=== PATIENT | female | born 1980 | race Two or more races ===

== ENCOUNTER 2020-05-15 10:36 | Outpatient (REF) | payer OTHER, SELFPAY ==
[2020-05-18 14:13] LABS: HSV 1 DNA Result Negative (Negative); HSV 2 DNA Result Negative (Negative); Varicella Zoster DNA Result Positive (Negative)
== END 2020-05-15 10:56 ==
LOC: NCHCN 10:36
PROVIDERS: Visit Provider Nurse Practitioner Family
DX: L03.114 Cellulitis of left upper limb (principal)
CPT/HCPCS: 87529; 87798

== ENCOUNTER 2021-03-01 14:41 | Outpatient (REF) | payer OTHER, SELFPAY ==
--- NOTE | 2021-03-01 13:30 | PAPFT_PTH ---
PATIENT: Pamela Galicia LOC: [facility] U#:[id number] AGE/SX: 40/F ROOM: RE03/01/[address]: LISANDRA Luz : 1980 BED: DIS: 03/01/2021 SPEC #: [id number] RECD: 03/01/21 17:31 STATUS: LIZZETTE REQ #: [id number] DANNA: 03/01/21 13:[address]: Joyce Izquierdo DEPT: [facility] Cytology RECD BY: Tiana Peres ENTERED: 03/01/21 17:31 SP TYPE: PAPFT OT DR: Unknown,Unknown Tissues: 1 - CX/ENDOCX FOR PAP SMEARS Procedures: PAP THIN PREP/[facility] Screening HPV DNA PROBE Comments: [id number]
== END 2021-03-01 14:42 | disposition home or self-care (01) ==
LOC: LBN 14:41
PROVIDERS: Visit Provider Nurse Practitioner Family
DX: Z12.4 Encounter for screening for malignant neoplasm of cervix (principal); Z11.51 Encounter for screening for human papillomavirus (HPV)
CPT/HCPCS: 88142; 87624

== ENCOUNTER → 2022-01-14 01:09 | Outpatient (CLI) | payer OTHER, SELFPAY ==
--- NOTE | 2022-01-14 | DI.MAMMO_ITS ---
Exam(s) MAMMO SCREENING EXAM: MAMMO SCREENING CLINICAL HISTORY: SCREENING, Z12.39 TECHNIQUE: Mammograms were interpreted according to the usual protocol including computer analysis w [employer] CAD system, tomosynthesis and C-view imaging. COMPARISON: 2018 FINDINGS: The breasts are composed of scattered fibroglandular densities, Breast Density category B. No suspicious masses or suspicious microcalcifications are seen. No skin thickening or abnormal axillary lymph nodes are seen. There has been no significant change from prior exams. IMPRESSION: BI-RADS Category 1, Negative mammogram Yearly screening mammography is recommended. Breast Density - Category B, scattered fibroglandular densities. A negative radiographic report should not delay biopsy if a dominant or clinically suspicious mass is present. Up to ten percent of cancers are not identified on mammography. A negative report may reinforce clinical impression. Adenosis and dense breasts may obscure an underlying neoplasm. False positive reports average 6 to 10%. Patient will receive a letter notifying them of these results.
--- OUTSIDE RECORDS SUMMARY | 2022-01-14 01:11 | XMS_ITS ---
:1980 Author Care Team Providers Name Role Phone LACI DOWELL Primary Care Provider [phone] Allergies Code Code System Name Reaction Severity Status Onset NKDA ? Medications Name Status Start Date Stop Date ? ? amoxicillin 500 mg capsule Completed ? 01/12 amoxicillin 500 mg tablet Completed ? 2019 chlorthalidone 25 mg tablet Completed ? 02/20 Imitrex 50 mg tablet Completed 11/11/2016 05/17/2017 1 (one) Tablet: once lisinopril 5 mg tablet Completed ? 0 Notes: Has not started Problems Name Status Onset Date Source ? Pain of Left Shoulder Joint Active 05/23/2018 ? Essential Hypertension Active 05/27/2019 ? Severe Obesity Active ? History Obstructive Sleep Apnea Syndrome Active ? History Migraine Active ? History Chronic Migraine without Aura Unknown ? Hi story Hypertensive Disorder Active ? History Adult Health Examination Active ? History Procedure by Method Unknown ? History Procedures Date Name Performed by ? ? Foot Surgery Information not avai lable Notes: cyst removal on foot as a child 05/23/2018 MAMMO, Screening, Tomosynthesis, [facility] (Internal) Bilateral [address] [place] [address] (Work Place) Results Lab Results Date Name Specimen Result Interpretation Description Value Range Status Address ? 12/14/2016 Venipuncture BLD ? Venpn* ? ? Final [facility] (Internal) : [address] 12/14/2016 BMP, Serum or S ? g/r 89 mg/dL 74-10 [facility] Plasma 6 Hospital L ab mg/dL (Internal) : [address] ? ? S ? Bun 10 mg/dL 7-17 Final [facility] untry mg/dL Hospital L ab (Internal) : [address] ? ? S ? Crea 0.60 0.52- Final [facility] try mg/dL 1.04 Hospital L ab mg/dL (Internal) : [address] ? ? S ? Ca 8.4 8.4-1 Final [facility] try mg/dL 0.2 Hospital L ab mg/dL (Internal) : [address] ? ? S ? Na 142 137-1 Final [facility] try mmol/L 45 Hospital L ab mmol/ (Internal) : [address] ? ? S ? K 4.1 3.5-5 Final [facility] try mmol/L .1 Hospital L ab mmol/ (Internal) : [address] ? ? S ? Cl 104 98-10 Final [facility] try mmol/L 7 Hospital L ab mmol/ (Internal) : [address] ? ? S ? Tco2 28.0 22.0- [facility] mmol/L 30.0 [facility] L [facility] mmol/ (Internal) : [address] 12/14/2016 Lipid Panel, S ? Chol 145 50-20 Final [facility] Serum mg/dL 0 Hospital L ab mg/dL (Internal) : [address] ? ? S ? Trig 63 mg/dL 10-15 Final [facility]try 0 Hospital L ab mg/dL (Internal) : [address] ? ? S ? Hdl 41 mg/dL 40-60 Final [facility] mg/dL Hospital L ab (Internal) : [address] ? ? S ? Ldl 91 mg/dL 0-130 Final [facility] untry mg/dL Hospital L ab (Internal) : [address] Past Encounters None recorded. Social History Tobacco Smoking Status Never Smoker Vaccine List None recorded. Plan of Care Reminders Provider Appointments None recorded. ? ? Lab None recorded. ? ? Referral None recorded. ? ? Procedures None recorded. ? ? Surgeries None recorded. ? ? Imaging None recorded. ? ? Vitals 03/20/2020 12:30PM Office 30 Height Weight BMI Blood Pressure 162.56 cm 119.02 kg 45 kg/m2 146/85 mm[Hg] 08/29/2019 08:40AM Follow Up 20 Height Weight BMI Blood Pressure 162.56 cm 122.42 kg 46.3 kg/m2 (1) 140/92 mm[H g] (2) 144/94 mm[Hg ] 05/27/2019 09:00AM CPE 40 Height Weight BMI Blood Pressure 162.56 cm 127.01 kg 48.1 kg/m2 146/92 mm[Hg] 12/17/2018 12:40PM Acute 20 Height Weight BMI Blood Pressure 162.56 cm 123.38 kg 46.7 kg/m2 (1) 158/108 mm[ Hg] (2) 152/92 mm[Hg ] 05/23/2018 10:40AM CPE 40 Height Weight BMI Blood Pressure 162.56 cm 123.38 kg 46.7 kg/m2 132/98 mm[Hg] 09/15/2017 Height Weight Blood Pressure 162.56 cm 122.5 kg 138/72 mm[Hg] 05/17/2017 Height Weight Blood Pressure 164.08 cm 124.87 kg 142/88 mm[Hg] 11/11/2016 Height Weight Blood Pressure 162.56 cm 124.78 kg 134/84 mm[Hg] 04/29/2016 Height Weight Blood Pressure 162.56 cm 120.97 kg 142/90 mm[Hg]
== END ==
PROVIDERS: Visit Provider Physician Assistant
DX: Z12.31 Encounter for screening mammogram for malignant neoplasm of breast (principal)
CPT/HCPCS: 77063; 77067

== ENCOUNTER → 2023-12-15 00:08 | Outpatient (CLI) | payer OTHER, SELFPAY ==
--- NOTE | 2023-12-15 | DI.MAMMO_ITS ---
Exam(s) MAMMO SCREENING EXAM: MAMMO SCREENING CLINICAL HISTORY: SCREENING, Z12.31 TECHNIQUE: Bilateral full field digital CC and MLO mammographic images were obtained with 3D tomosyn thesis and utilizing computer aided detection (CAD). COMPARISON: Available for comparison. FINDINGS: Masses/Architectural Distortion: None seen. Microcalcifications: No suspicious pleomorphic-type are seen. Skin Thickening/Nipple Retraction: None. IMPRESSION: 1. No significant interval change with no specific features of malignancy noted. 2. Unless there is more urgent need, screening mammography is recommended, as per [place] guidelines. BI-RADS Category 1 - Negative Breast Density - Category B - Scattered areas of fibroglandular density Breast density category C or D implies that the patient has dense breast tissue. Dense breast tissue is very common and is not abnormal but dense breast tissue can make it harder to find cancer on a ma mmogram. Also, dense breast tissue may increase their breast cancer risk. This information about the result of the mammogram report was provided to the patient to raise their awareness. Use this report when you speak with the patient about their risks for breast cancer, which includes their family hist ory. At that time, you may recommend for more screening tests (Ultrasound or MRI) as they might be us eful based on their risk. A negative radiographic report should not delay biopsy if a dominant or clinically suspicious mass is present. Up to ten percent of cancers are not identified on mammography. A negative report may reinforce clinical impression. Adenosis and dense breasts may obscure an underlying neoplasm. False positive reports average 6 to 10%. Patient will receive a letter notifying them of these results.
== END ==
PROVIDERS: Visit Provider Physician Assistant
DX: Z12.31 Encounter for screening mammogram for malignant neoplasm of breast (principal)
CPT/HCPCS: 77063; 77067

== ENCOUNTER 2025-01-17 11:08 | Day surgery (SDC) | payer OTHER, SELFPAY ==
--- NOTE | 2025-01-16 16:47 | W.PM.DSUDISC ---
Date of service: 01/17/25 Discharge Plan Disposition Patient Disposition: Home Condition: Good Discharge Details Reason For Visit: EGD and colonoscopy Attending Provider: Jac Floyd Primary Care Provider: Ori Xie Home Meds and New Rx's Prescriptions: New pantoprazole 20 mg tablet,delayed release (DR/EC) 20 mg PO DAILY Qty: 30 0RF Continued ferrous gluconate 324 mg (37.5 mg iron) tablet 324 mg PO DAILY sertraline 25 mg tablet 25 mg PO DAILY Discontinued polyethylene glycol 3350 17 gram/dose powder 238 g PO ONCE Qty: 238 0RF Rx Instructions: take per colonoscopy instructions bisacodyl [Dulcolax (bisacodyl)] 5 mg tablet,delayed release (DR/EC) 5 mg PO ONCE Qty: 4 0RF Rx Instructions: take per colonoscopy instructions Discharge Instructions Instructions: Peptic ulcers Additional Instructions: Pamela, was good seeing you today, and I hope you feel well after the procedures. Things went very smoothly. With regards to your upper endoscopy, there are some signs of inflammation in your stomach in the form of very small ulcers. None of them are actively bleeding, nor do they require any specific interventions today. However, I do suspect that this is probably the cause of your chronic anemia. There are also a few small polyps in your stomach. These are not at all dangerous. They are quite small, and very common among patients. I did do some biopsies of different areas of the stomach, and I did sample one of the polyps to be sure nothing is out of the ordinary. These biopsies will take a week or 2 to get back, but once my office has that information, we will be in touch with any other recommendations. I did go ahead and put an order in for prescription called pantoprazole today. This is also known as Protonix. This medication is in the family of proton pump inhibitors, which are strong antacids. These are the mainstay of therapy for patients with gastritis and peptic ulcer disease we will start with 1 tablet every day. See how your symptoms change, and how your blood work looks over the coming months. With regards to your colonoscopy, everything is totally normal. There were no polyps, tumors, or anything else at all worrisome. Nor are there any signs of any source of chronic bleeding here. If you need anything, or have any questions at all, please do not hesitate to ask, otherwise we will be in touch once the biopsy results are available. 1. If tolerated, consume a soft, low fiber diet for 1-2 days. 2. Do not drive, drink alcohol, operate machinery, make critical decisions, or do activities that require coordination or balance for 24 hours. 3. Because air was put into your colon during the procedure, expelling air from your rectum (passing gas or farting) is normal. 4. You may not have a bowel movement for 1-3 days because of the colonoscopy prep. This is normal. 5. You may experience a sore throat for 24 to 48 hours. You may use throat lozenges or gargle with warm salt water to relieve the discomfort. 6. Because air was put into your stomach during the procedure, you may experience some belching. 7. Go directly to the emergency room if you notice any of the following: Develop chills (warm to touch), or if you have a thermometer and your temperature is above 101 Difficulty breathing or difficultly swallowing Persistent vomiting Severe abdominal pain, other than gas cramps Severe chest pain Black, tarry stools Any bleeding ? exceeding one tablespoon 8. Call your physician if the site where your intravenous was started becomes red, swollen, painful, and warm to touch. 9. Your physician has reviewed your pre-procedure medications. Please continue to take those medications as previously ordered. You will be given specific information/education regarding any changes to your medications before leaving. Activity:: Activity as Tolerated Diet:: As Tolerated Discharge Orders Discharge Orders: Discharge Order (Routine); Ordered 01/16/25 Ordered By: Jac Floyd DS: Diagnosis Discharge Diagnosis (1) Anemia: Status: Chronic
--- NOTE | 2025-01-16 16:50 | ENDO_ITS ---
Date of service: 01/17/25 Time of Service: 14:48 Endoscopy Report DATE OF PROCEDURE: 01/17/25 PRE-OP DIAGNOSIS: Anemia POST-OP DIAGNOSIS: other (Peptic ulcer disease, normal colonoscopy) PROCEDURE: EGD with biopsies and colonoscopy SURGEON: Jac Floyd ANESTHESIA TYPE: General:No Airway ESTIMATED BLOOD LOSS: 5 PATHOLOGY: other (Cold forceps biopsies of gastric antrum, gastric ulcer, gastric polyp, and gastric body. Four-quadrant biopsies of the GE junction) COMPLICATIONS: None DISPOSITION: same day INDICATIONS: Evin patient is a 44-year-old woman who is overdue for screening colonoscopy. She also has a recent diagnosis of anemia PREP: Miralax/Dulcolax PROCEDURE START TIME: 14:04 PROCEDURE END TIME: 14:29 COLONOSCOPY RETRACTION TIME: 8 FINDINGS: Mild Z-line irregularity extending from 34 to 36 cm. Gastric polyps, peptic ulcers. Normal colonoscopy PROCEDURE DESCRIPTION: After the initiation of anesthesia, and with the assistance of a bite block, I advanced a standard gastroscope through the mouth past the hypopharynx and into the esophagus.? Under the direct vision of the scope, I advanced down the esophagus towards the stomach. The upper, mid, and lower esophagus were all normal and healthy appearing. There is some irregularity of the Z-line, which extends up to 34 cm beyond the incisors, down to the true GE junction at 36 cm. Narrowband imaging was used here. Aside from the irregularity, the mucosa otherwise appeared normal, with no obvious signs of Rush's esophagus. I advanced down across the GE junction into the stomach and insufflated into the rugae were obliterated. I performed retroflexion. I did not see any signs of any hiatal hernias. There are some punctate areas of peptic ulcer disease, they are all flat, and all well less than 0.25 cm. There are no visible vessels or anything concerning with regards to bleeding. These are mostly restricted to the gastric antrum. There are a few fundic land polyps. All are well less than 1 cm. 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 I am able to advance down across the pylorus into the duodenal bulb. The villi were normal and healthy appearing. There is no evidence of any bleeding in the duodenum. I took the camera down as far as the third portion, and all of that looked normal. I then brought the camera back up into the stomach proper and perform some nondirected biopsies of the gastric antrum. I biopsied one of the small antral ulcers, as well as a small area of ulceration in the main body of the stomach. These were all done with cold forceps. There was minimal bleeding from the sites. I then brought the camera up to the GE junction, and perform four-quadrant biopsies here to rule out Rush's esophagus. Next, we rolled hide into the left lateral decubitus position. I began by performing an external anorectal exam.? Perineum and skin were normal, as was the anal verge.? There was no evidence of external hemorrhoids.? Next, I performed a digital rectal exam.? I did not appreciate any abnormal findings.? Next, I advanced a colonoscope into the rectal vault.? I performed retroflexion.? This appeared normal.? Using insufflation, I then advanced the colonoscope beyond the rectal folds and into the sigmoid colon before advancing towards the cecum.? The scope was noted to be in the cecum by identification of the ileocecal valve and appendiceal orifice.? I then began withdrawing the colonoscope using repeated irrigation as necessary for full evaluation of the colonic mucosa. ?Once the scope was withdrawn to the level of the rectum, great care was taken to examine portions of the rectal folds.? I saw no signs of tumors, polyps, AV malformations, or any other worrisome pathology. Finally, the scope was withdrawn and the patient was brought to the same-day surgery recovery unit as the anesthetic wore off. ?The findings and instructions were shared with the patient prior to discharge. The Marshall bowel prep score from right to left was 3, 3, 3
[2025-01-17 12:27] VITALS: BP 139/75; PULSE 77; RESP 16; TEMP 36.4; O2SAT 100
[2025-01-17] MEDS: Lactated Ringers 1,000 ML 80 ML IV (12:55)
--- NOTE | 2025-01-17 13:50 | W.ANESPRE ---
General Info Date of Service Date Performed: 01/17/25 Height: 5 ft 4 in Weight: 109 kg Body Mass Index (BMI): 41.2 Surgical Procedure: Operation Date: 01/17/25 12:50 Proposed Procedure Side Surgeon p Colonoscopy/Gastroscopy Jac Floyd MD Actual Procedure Side Surgeon p Colonoscopy/Gastroscopy Not Applicable Jac Floyd MD Pre-Op Diagnosis Post-Op Diagnosis EGD and colonoscopy Meds Allergies and Home Medications Allergies Allergy/AdvReac Type Severity Reaction Status Date / Time No Known Allergies Allergy Verified 01/17/25 12:34 Home Medication ?Medication ?Instructions ?Recorded ferrous gluconate 324 mg (37.5 mg 324 mg PO DAILY 12/12/24 iron) tablet sertraline 25 mg tablet 25 mg PO DAILY 12/12/24 Current Visit Medications: Current Medications Generic Name Dose Route Start Last Admin Trade Name Freq PRN Reason Stop Dose Admin Ringer's Solution 1,000 mls @ 80 mls/hr 01/17/25 06:00 01/17/25 12:55 IV 01/17/25 23:59 80 mls/hr INFUSION LEE Administration IV Miscellaneous Supplies 1 each 01/17/25 06:00 Iv Access IV 01/17/25 23:59 DIRECTED LEE Ondansetron HCl 4 mg 01/16/25 16:51 Ondansetron 4 Mg/2 Ml Vial IVP 02/15/25 16:50 Q4H PRN PRN Nausea / Vomiting Sodium Chloride 0 ml 01/17/25 06:00 Normal Saline Flush 10 Ml Syr IV 01/17/25 23:59 PRN PRN Sodium Chloride 0 ml 01/17/25 06:00 Normal Saline 10 Ml Vial IJ 01/17/25 23:59 DIRECTED PRN Sterile Water 0 ml 01/17/25 06:00 Water,Injection,Sterile 10 Ml Vial IJ 01/17/25 23:59 DIRECTED PRN PFSH Active Problems Active Problems: Problem Status Onset Code Anemia Chronic D64.9 Iron deficiency anemia Acute D50.9 Elevated BP without diagnosis of hypertension Acute R03.0 Medical History Medical History ZEHRA (obstructive sleep apnea) Essential hypertension Migraine Depressive disorder Surgical History Surgical History History of foot surgery cyst exc. Tobacco Smoking/Tobacco Use Status: Never Alcohol Alcohol Intake: never Substance Use Substance use type: does not use Vital Signs and Lab Results Vital Signs Most Recent Vital Signs in EMR: Most Recent Vital Signs Temp Pulse Resp BP Pulse Ox 36.4 C L 77 16 139/75 100 01/17/25 12:27 01/17/25 12:27 01/17/25 12:27 01/17/25 12:27 01/17/25 12:27 Point of Care Results Point of Care Results: POC- Test(urine) Negative 01/17/25 12:41 Lab Results Blood Type / Crossmatch: No Data to Display Complete Blood Count: No Data to Display Complete Metabolic Panel: No Data to Display Liver Function Panel: No Data to Display Coagulation Panel: No Data to Display Cardiac Panel: No Data to Display Arterial Blood Gas: No Data to Display Venous Blood Gas: No Data to Display Pancreas Panel: No Data to Display Thyroid Panel: No Data to Display Infectious Disease: No Data to Display Blood Cultures: No Data to Display Toxicology Panel: No Data to Display Panel: No Data to Display Anesthesia Assessment and Plan Anesthesia History Personal History: No History of Anesthesia Complications Family History: No Family History of Anesthesia Complications Exercise Tolerance Exercise Tolerance: Metabolic Equivalents>4 Pertinent Negatives Pertinent Negatives: No Symptoms of GERD Cardiac & Pulmonary Exam Cardiac Exam: Normal S1/S2 Heart Sounds Pulmonary Exam: Clear Bilateral Breath Sounds Implantable Cardiac Device Does patient have a Pacemaker or an ICD?: No Airway Exam Known Difficult Airway: No Mallampati Class: 2 Mouth Opening: Normal (> 3cm) Thyromental Distance: Greater than 3 cm Neck Range of Motion: Full ROM Neck Circumference: Normal Teeth Condition: Normal Dentition ASA Classification ASA Score: ASA 2 Emergency Case?: No NPO Status NPO Status: NPO Clears >2 hours, Solids >8 hours Status Status: Not Relevant due to Medical History Anesthesia Plan Resuscitation Status: Full Code Anesthesia Technique: General Anesthesia Airway Planned: Natural Airway Monitors Used: Standard Monitors
[2025-01-17 13:51] VITALS: BMI 41.2
[2025-01-17 14:38] VITALS: BP 143/75; PULSE 71; RESP 16; TEMP 36.1; O2SAT 96
[2025-01-17 15:05] VITALS: BP 143/79; PULSE 65; RESP 16; TEMP 36.5; O2SAT 98
--- NOTE | 2025-01-17 15:23 | W.ANESPOSTOP ---
Postoperative Evaluation Date, Time and Location Date Performed: 01/17/25 Time Performed: 15:23 Patient Location: Day Surgery Unit Vital Signs Most Recent Imported Vital Signs: Most Recent Vital Signs Temp Pulse Resp BP Pulse Ox 36.1 C L 71 16 143/75 H 96 01/17/25 14:38 01/17/25 14:38 01/17/25 14:38 01/17/25 14:38 01/17/25 14:38 Pain Score Most Recent Pain Score: Most Recent Pain Score Pain Level 0 01/17/25 14:38 Assessment Mental Status: Awake (Alert & Oriented to Patient Baseline) Airway and Respiratory Function: Patent airway with normal (patient baseline) respiratory exam Cardiovascular Function: Hemodynamically Stable Hydration Status: Adequately Hydrated Nausea & Vomiting: No Nausea or Vomiting Pain: Pt. Denies Any Pain Peripheral Nerve Block: Patient did not receive a nerve block
--- NOTE | 2025-01-17 16:06 | STOM_PTH ---
PATIENT: Pamela Galicia LOC: [facility] U#:[id number] AGE/SX: 44/F ROOM: RE01/17/[address]: Jac Floyd MD : 1980 BED: DIS: 01/17/2025 SPEC #: [id number] RECD: 01/17/25 16:47 STATUS: SOUT REQ #: [id number] DANNA: 01/17/25 16:[address]: Jac Floyd DEPT: Surgical Specimen RECD BY: Tiana Peres ENTERED: 01/17/25 16:55 SP TYPE: STOMACH OTHR DR: Ori Xie Tissues: 1 - STOMACH BIOPSY 2 - STOMACH BIOPSY 3 - STOMACH BIOPSY 4 - STOMACH BIOPSY 5 - ESOPHAGUS BIOPSY Procedures: GROSS AND MICRO LEVEL 4 Comments: [id number]
== END 2025-01-17 15:27 | disposition home or self-care (01) ==
LOC: SUR 11:09
PROVIDERS: PCP Physician Assistant; Visit Provider Surgery
PROC: (CPT 43239; principal; 2025-01-17 12:45)
DX: Z12.11 Encounter for screening for malignant neoplasm of colon (principal); D64.9 Anemia, unspecified; K31.7 Polyp of stomach and duodenum; K25.9 Gastric ulcer, unspecified as acute or chronic, without hemorrhage or perforation; K29.70 Gastritis, unspecified, without bleeding; K22.89 Other specified disease of esophagus
CPT/HCPCS: 43239; 45378; 81025; 88305; J2704

== ENCOUNTER 2025-06-23 12:31 | Outpatient (REF) | payer OTHER, SELFPAY ==
[2025-06-23 18:42] LABS: HCT 35.1 % (36.0-46.0); HGB 10.5 g/dL (11.2-15.7); MCH 22.8 pg (27.0-33.0); MCHC 29.9 % (32.0-36.0); MCV 76 fL (80-95); MPV 11.2 fL (8.0-11.0); Platelet Count 240 10^3/uL (130-400); RBC 4.61 10^6/uL (3.93-5.22); RDW 16.2 % (11.7-14.6); RDW-SD 44.3 fL; WBC 5.43 10^3/uL (4.4-10.8)
[2025-06-23 19:28] LABS: Iron 26 ug/dL (50-170); Total Iron Binding Capacity 396 ug/dL (250-450)
[2025-06-23 19:44] LABS: Ferritin 6 ng/mL (8-252); Vitamin B12 474 pg/mL (193-986)
== END 2025-06-23 12:32 | disposition home or self-care (01) ==
LOC: NCHCN 12:31
PROVIDERS: PCP Physician Assistant; Visit Provider Physician Assistant
DX: D50.9 Iron deficiency anemia, unspecified (principal)
CPT/HCPCS: 85027; 82607; 82728; 83540; 83550